=== PATIENT | male | born 1940 | race Caucasian/White ===

== ENCOUNTER 2016-08-28 18:28 | Inpatient (IN) | payer OTHER, MEDICARE ==
[~2016-08-28] VITALS: Ht 177.8 cm; Wt 41.4 kg
--- NOTE | ~2016-08-28 | PR ---
[place], [place] PROGRESS NOTE NAME: AMGAN XIONG UNIT #: [id number] ROOM: 426 DOCTOR: CAESAR QUIGLEY MD,DARLENE BIRTHDATE: [birth year] DOS: 08/31/2016 SUBJECTIVE: He has been kept n.p.o. past midnight for bronchoscopy planned for today. He was still noted significant amount of cough without any sputum expectoration. Denies symptoms of chest pain. Continue previous ordered medication for exacerbation of COPD and acute pneumonia. OBJECTIVE: VITAL SIGNS: Showed normal temperature, respiratory rate 18, heart rate 104, blood pressure of 131/68. Pulse oxygen saturation was noted as 98% on 3 liters nasal cannula. HEENT: Examination shows head was atraumatic. Eyes nonicterus. NECK: Supple. CARDIOVASCULAR: S1, S2 audible. LUNGS: Noted without any wheezing. No crackles. ABDOMEN: Soft, nontender. LABORATORY DATA: CBC this morning, hemoglobin 11.9, hematocrit 38.8, WBC count and platelet count were normal. D-dimers were noted as 0.57 that was ordered yesterday by the primary care attending. Platelet function assay was normal. PT/PTT were noted normal yesterday. IMPRESSION: The patient with bronchiectasis as well as impaction of the mucous plug with mucosa and suspected acute pneumonia exacerbation, chronic obstructive pulmonary disease and other problems which has been already treated. The patient is n.p.o. past midnight for bronchoscopy. PLAN OF TREATMENT: Proceed with bronchoscopy as planned. Any changes or modifications of treatment if necessary will be done after the bronchoscopy. DARLENE MAYNARD MD CM:PNTRANS [id number] DARLENE QUIGLEY MD 08/31/16 1308 interface
--- NOTE | ~2016-08-28 | CON ---
[place], [place] REPORT OF CONSULTATION NAME: MAGAN XIONG UNIT #: [id number] ROOM: 426 DOCTOR: DARLENE JACOME MD BIRTHDATE: [birth year] DOS: 08/29/2016 Consultation at the request of the hospitalist services. REASON FOR CONSULTATION: Assess the patient for acute exacerbation of COPD and possibility of acute pneumonia. HISTORY OF PRESENT ILLNESS: This is a 75-year-old white male who has been managed in the [place] system. The patient noted with history of chronic hypoxic respiratory failure with ____ advanced COPD. The patient had emphysema. The patient came to the hospital, has been noted with symptoms of increased shortness of breath, which was associated with significant cough and a small amount of clear sputum expectoration. The coughing has been noted to worsen with significant shortness of breath. The patient stated that he has been noted ill for a long time and noted with current worsening of the respiratory status and symptom. He denies any symptoms of chest pain. Denies symptoms of abdominal pain. The patient has been noted with acute exacerbation of chronic obstructive pulmonary disease and also acute tracheobronchitis. The patient's oxygen saturation noted as quite low for the patient upon arrival in the Emergency Room. REVIEW OF SYSTEMS: CONSTITUTIONAL SYMPTOMS: Fatigue and tiredness noted without symptoms of fever or chills. EYES: Denies burning, redness, or tenderness. EARS, NOSE, THROAT SYMPTOMS: No sore throat, hoarseness, otalgia, postnasal drainage or epistaxis. GASTROINTESTINAL SYMPTOMS: Denies dysphagia, nausea, vomiting, diarrhea, abdominal pain, hematemesis, melena, or hematochezia. SKIN: Denies lesions or rashes. CENTRAL NERVOUS SYSTEM: Loss of muscle mass, which has been noted chronic. There were no acute joint pain, redness or tenderness. Denies dizziness, headache, diplopia or syncopal episodes. GENITOURINARY SYMPTOMS: Denies dysuria, suprapubic pain, or hematuria. Remaining systems were reviewed with the patient, they were noted all negative. PAST MEDICAL HISTORY: Noted with; 1. History of centrilobular emphysema. 2. Chronic hypoxic respiratory failure, use of oxygen 3 liters nasal cannula. 3. History of epilepsy. 4. History of prostate cancer. The patient with history of prostate cancer, which has been treated with the radiation. 5. History of steatohepatitis. PAST SURGICAL HISTORY: 1. Cataract extraction with lens implantation. 2. Biopsy of the prostate. SOCIAL HISTORY: The patient lives at home. He has been noted with history of [place], [place] REPORT OF CONSULTATION NAME: MAGAN XIONG UNIT #: [id number] ROOM: 426 DOCTOR: CAESAR QUIGLEY MD,DARLENE BIRTHDATE: [birth year] tobacco use, started at a younger age, 2 pack of cigarettes per day until August of 2006. Denies history of alcohol use or illicit drug use. He has worked in the ____ years of total of 20 years. Denies history of alcohol use at this time. Denies history of illicit drug use. HOME MEDICATIONS: Noted as; 1. Mysoline 200 mg p.o. daily. 2. ProAir HFA inhaler p.r.n. use. 3. Spiriva Respimat 2 inhalation daily. DRUG ALLERGY HISTORY: The patient noted as no known drug allergies. PHYSICAL EXAMINATION: GENERAL: A 75-year-old male who has been noted with chronic cachexia for this patient currently comfortably lying in the bed, without any distress. VITAL SIGNS: Height for the patient noted 5 feet 10 inches, weight of 91 pounds, BMI only 13. Vital signs of the patient which have been recorded showed normal temperature, respiratory rate patient was noted 20-18, heart rate of 108-123 with sinus tachycardia, blood pressure 134/81, the patient 104/66. Pulse oxygen saturation of the patient 3 liters nasal cannula 97% saturation recorded. Previous noted oxygen saturation 70% at home for this patient. HEENT: Examination shows head was atraumatic. Eyes nonicterus. Loss of muscle mastication. NECK: Supple. CARDIOVASCULAR SYSTEM: S1, S2 is audible. LUNGS: The patient was noted without any crackles. Decreased breath sounds noted. Diffuse expiratory wheezing. ABDOMEN: Flat, soft, nontender. Bowel sounds present. CENTRAL NERVOUS SYSTEM: The patient loss of muscle mass. Cranial nerves 2-12 intact. No focal deficits. MUSCULOSKELETAL SYSTEM: No deformities. SKIN: No lesions or rashes. LABORATORY DATA: Lactic acid noted yesterday; the patient on admission 1.7. CBC yesterday on admission, WBC count 12.3, hemoglobin 39.7. Platelet count was normal. CMP of the patient, which was noted as glucose 118, BUN and creatinine was normal. The potassium was 5.2. Troponin; the patient yesterday and this morning 3 sets were normal. CBC this morning, mild anemia, otherwise normal. CBC and CMP of the patient noted normal, BUN and creatinine of the patient and other electrolytes also noted as normal. The chest x-ray only 1 view which was done in the emergency noted with increased interstitial markings noted with changes severe emphysema. The patient with COPD, hyperinflation. Small granuloma was suspected in the left upper lobe as well. Some pleural thickening was identified in the right apex. Acute infiltration, especially in the left lower lobe cannot be completely excluded. The patient with my personal review of the chest x-ray. IMPRESSION: 1. The patient who has been currently admitted to the hospital noted with acute on chronic severe hypoxic respiratory failure with advanced muscle wasting for [place], [place] REPORT OF CONSULTATION NAME: MAGAN XIONG UNIT #: [id number] ROOM: 426 DOCTOR: KAN JACOME MDM BIRTHDATE: [birth year] the patient secondary to cachexia underlying chronic obstructive pulmonary disease would be considered. [facility] the possibility of tuberculosis, which has been excluded by the testing as reported in the history. 2. History of prostate cancer, which has been treated with radiation therapy. 3. Past history of nicotine abuse as well. 4. Possibly interstitial lung disease; the patient cannot be completely excluded. PLAN OF TREATMENT: The patient has been receiving currently intravenous corticosteroids 60 mg q. 12h, which will be continued. Continue bronchodilators as previously. Continue current antibiotic. Obtain the sputum for Gram stain and culture as well. The patient will be ordered a CT scan of the chest the patient without contrast. The patient to assess the underlying pulmonary status including assessment for any interstitial lung disease or other abnormalities. Prealbumin level will be ordered as well. The patient for assessment of nutritional status. Optimizing nutritional status the patient as well. Usual care, other supportive plan of therapy and care. Further treatment changes will be done based on progression of the illness. The patient's overall assessment has been discussed with his son in detail in the room, any questions asked by the patient were answered to their satisfaction. Thank you for allowing me to participate in the care of this patient. DARLENE MAYNARD MD CM:CONSTR:REPORT OF CONSULTATION 1452 08/30/16 0223 interface
--- NOTE | ~2016-08-28 | PR ---
[place], [place] PROGRESS NOTE NAME: MAGAN XIONG UNIT #: [id number] ROOM: 426 DOCTOR: CAESAR QUIGLEY MD,DARLENE BIRTHDATE: [birth year] DOS: 08/30/2016 SUBJECTIVE: The patient has been noted to be comfortable at this time without any distress. Denies symptoms of chest pain. Shortness of breath of the patient has been improving. The cough has been noted to be decreased. Denies symptoms of abdominal pain. OBJECTIVE: VITAL SIGNS: For the patient, which has been recorded showed temperature noted as normal, respiratory rate 16, heart rate 120-93, blood pressure 140/88-95/55. Pulse oxygen saturation of the patient on 3 liters canula 98% saturation. HEENT: Shows no acute change. NECK: Supple. CARDIOVASCULAR: S1, S2 audible. LUNGS: Shows moderate decreased breath sounds, scattered crackles of the lungs. Scattered wheezing. ABDOMEN: Soft, nontender. Bowel sounds are present. EXTREMITIES: Shows no edema, clubbing or cyanosis. LABORATORY DATA: CT scan of the chest with findings shows significant bronchiectasis noted in the lower lungs, worse on the right than the left side. Impaction of the of the mucus plug was noted with nodular density. The right lower lobe for this patient could be mucocele, possibility of a nodule for the patient can be excluded. Similar finding was noted in the left lower lobe as well. The right upper lobe, finding was also noted with possibility of fibrosis, which probably appeared to be chronic at this time with some pleural based thickening at this time as well. Prealbumin level noted as 11. IMPRESSION: 1. The patient with acute hypoxic respiratory failure, chronic hypoxic respiratory failure. 2. Acute pneumonia would be considered bilaterally, most likely related to the aspiration would be likely. 3. Impaction of the mucus for this patient was also considered in the left lower lobe bronchial opening. 4. Possibility of scarring in the right upper lobe for this patient maybe chronic, but there were no previous studies of the patient available, the records from the [facility] for the patient to document that. Until the comparison made for this patient, this could be considered as may be a chronic finding with some acute component cannot be excluded. 5. Protein-calorie malnutrition status was also noted. PLAN OF TREATMENT: Fibrobronchoscopy for the patient to be done tomorrow. Continue oxygen supplementation, bronchodilators and the treatment plan of management. Usual care. All other supportive therapy, plan of management. These findings, especially in the lower lungs needs to clear up and monitored later on an outpatient to document complete resolution. If it remains persistent, certainly additional abnormalities could be considered for patient such as malignancy as well. Improve the nutritional status. [place], [place] PROGRESS NOTE NAME: MAGAN XIONG UNIT #: [id number] ROOM: 426 DOCTOR: DARLENE JACOME MD BIRTHDATE: [birth year] DARLENE MAYNARD MD CM:FILI [id number] DARLENE QUIGLEY MD 08/30/16 2245 interface
--- NOTE | ~2016-08-28 | PROC NOTE ---
[place], [place] PROCEDURE NOTE NAME: MAGAN XIONG UNIT #: [id number] ROOM: 426 DOCTOR: CAESAR QUIGLEY MD,DARLENE BIRTHDATE: [birth year] DOS: 08/31/2016 PREOPERATIVE DIAGNOSES: The patient with abnormal finding CT scan of the chest with mucus cleared from the patient as well as endobronchial obstruction with mucus plugs. POSTOPERATIVE DIAGNOSES: The patient with abnormal finding CT scan of the chest with mucus cleared from the patient as well as endobronchial obstruction with mucus plugs. PROCEDURE DESCRIPTION: Informed consent obtained from the patient. He was brought to the OR and placed in supine position. Conscious sedation administered by the Anesthesia Department. After achieving appropriate sedation, airway introduced into the mouth. Bronchoscope advanced into the airway into laryngeal area. The epiglottis and vocal cords were seen. Bronchoscope advanced to the vocal cord and tracheal lumen. Tracheal lumen was noted with only small amount of secretion, which was suctioned out. The agustina was noted sharp. Right upper, right middle, right lower lobe openings were examined. Left upper, lingular lower lobe openings were all examined as well. The patient noted with moderate amount of thick mucoid secretion with some purulent secretion in the lower lobe endobronchial tree essentially bilaterally, which was cleared up with normal saline wash. Procedure was tolerated by the patient. No endobronchial obstructive lesions were noted. ADDENDUM PROCEDURE DESCRIPTION: All the endobronchial tree secretion was suctioned out and sent for culture. Procedure was well tolerated without any complications. Postoperative findings will be discussed with the patient once the patient recovers the effects of acute sedation. DARLENE MAYNARD MD CM:PROCNOTE:PROCEDURE NOTE [id number] DARLENE QUIGLEY MD
--- NOTE | ~2016-08-28 | PR ---
[place], [place] PROGRESS NOTE NAME: MAGAN XIONG UNIT #: [id number] ROOM: 426 DOCTOR: DARLENE JACOME MD BIRTHDATE: [birth year] DOS: 09/01/2016 SUBJECTIVE: He has been doing very well at this time with continued reduction and improvement in respiratory symptoms. Bronchoscopy completed yesterday without any difficulty. The patient has not been noted symptoms of chest pain or any abdominal pain. OBJECTIVE: VITAL SIGNS: For the patient which has been recorded shows normal temperature, respiratory rate 18, heart rate of 96, blood pressure of 98/60-100/84. The pulse oxygen saturation of the patient noted on 3 liters nasal canula 95% saturation. HEENT: Showed no acute change. NECK: Supple. CARDIOVASCULAR: S1, S2 audible. LUNGS: Noted without any wheezing or crackles at the present time. Breaths are noted mildly decreased bilaterally. ABDOMEN: Soft, nontender. LABORATORY DATA: Gram stain and bronchial washings, many white blood cells with moderate epithelial cells with gram-positive cocci in pairs. The preliminary culture noted normal omar. IMPRESSION: 1. The patient with significant improvement has been noted after the bronchoscopy with reduction and improvement in the respiratory complaints. 2. The patient with mucus impaction with mucosa as well as acute pneumonia, rule out any. 3. Pulmonary nodules in the lungs. PLAN OF TREATMENT: The patient could be discharged home on oral antibiotics and tapering dose of prednisone. He was advised to be followed up and to be assessed as an outpatient, followup CT scan of the chest in about a month to document resolution of current pulmonary abnormality. ____ abnormality remains persistent, certainly he will be assessed additionally for possibility of malignancy as well. [place], [place] PROGRESS NOTE NAME: MAGAN XIONG UNIT #: [id number] ROOM: 426 DOCTOR: DARLENE JACOME MD BIRTHDATE: [birth year] DARLENE MAYNARD MD CM:PNTRANS [id number] DARLENE QUIGLEY MD 09/01/16 1200 interface
[~2016-08-28 18:28] MED LIST: ADVAIR 250/501 EA INH; CIPROFLOXACIN500 MG PO; MYSOLINE50 M2 PO; SPIRIVA18 MCG PO
[2016-08-28 18:37] VITALS: BP 152/94
[2016-08-28] MEDS ORDERED: PROAIR HFA8.5 GM INH (18:41)
[2016-08-28 19:13] LABS: BASO # 0.1 10*3/uL (0.0-0.1); BASO % 0.6 % (0.0-1.0); EOS # 0.3 10*3/uL (0.0-0.4); EOS % 2.5 % (1.0-4.0); HEMATOCRIT 39.7 % (42.0-52.0); HEMOGLOBIN 12.3 g/dl (14.0-18.0); LYMPH # 1.1 10*3/uL (1.3-4.4); LYMPH % 10.5 % (27.0-41.0); MEAN CELL VOLUME 89.8 fl (80.0-94.0); MEAN CORPUSCULAR HGB 27.8 pg (27.0-31.0); MEAN PLATELET VOLUME 9.6 fl (9.6-12.3); MONO # 0.8 10*3/uL (0.1-1.0); MONO % 7.2 % (3.0-9.0); NEUT # 8.4 10*3/uL (2.3-7.9); NEUT % 78.8 % (47.0-73.0); PLATELET COUNT AUTOMATED 281 10*3/uL (130-400); RED BLOOD COUNT 4.42 10*6/uL (4.50-5.90); RED CELL DISTRI WIDTH 15.9 % (0-14.5); WHITE BLOOD COUNT 10.6 10*3/uL (4.8-10.8)
[2016-08-28 19:22] LABS: PROTHROMBIN TIME 10.3 SECONDS (9.0-12.4)
[2016-08-28 19:30] LABS: ALBUMIN 2.9 gm/dl (3.1-4.5); ALKALINE PHOSPHATASE 147 U/L (45-117); BILIRUBIN, TOTAL 0.2 mg/dl (0.2-1.0); BUN 14 mg/dl (7-24); CARBON DIOXIDE 34 mmol/L (21-32); CHLORIDE 102 mmol/L (98-107); CPK 46 U/L (39-308); EST GLOM FILT AFRICAN AMERICAN > 60 ml/min; GLUCOSE 118 mg/dL (65-99); LDH 170 U/L (87-241); MAGNESIUM 2.1 mg/dL (1.5-2.1); POTASSIUM 5.2 mmol/L (3.5-5.1); SGOT/AST 30 IU/L (3-35); SGPT/ALT 14 U/L (12-78); SODIUM 145 mmol/L (136-145); TOTAL PROTEIN 7.7 gm/dL (6.4-8.2)
[2016-08-28 19:31] LABS: TROPONIN I < 0.015 ng/ml (<0.045)
[2016-08-28 20:06] VITALS: BP 134/81
[2016-08-28 22:28] VITALS: BP 99/58
[2016-08-28 22:30] VITALS: BP 99/58
[2016-08-29 03:26] LABS: BILIRUBIN NEGATIVE (NEGATIVE); BLOOD NEGATIVE (NEGATIVE); CLARITY CLEAR (CLEAR); COLOR YELLOW (YELLOW); GLUCOSE NEGATIVE (NEGATIVE); KETONE 1+ (NEGATIVE); LEUKO ESTERASE NEGATIVE (NEGATIVE); NITRITE NEGATIVE (NEGATIVE); PROTEIN TRACE (NEGATIVE); SPECIFIC GRAVITY 1.025 (1.005-1.030)
[2016-08-29 03:29] LABS: HEMATOCRIT 38.1 % (42.0-52.0); HEMOGLOBIN 11.4 g/dl (14.0-18.0); MEAN CELL VOLUME 90.9 fl (80.0-94.0); MEAN CORPUSCULAR HGB 27.2 pg (27.0-31.0); MEAN CORPUSCULAR HGB CONC 29.9 g/dl (33.0-37.0); PLATELET COUNT AUTOMATED 259 10*3/uL (130-400); RED BLOOD COUNT 4.19 10*6/uL (4.50-5.90); RED CELL DISTRI WIDTH 15.9 % (0-14.5); WHITE BLOOD COUNT 9.3 10*3/uL (4.8-10.8)
[2016-08-29 03:32] LABS: BACTERIA TRACE; EPITHELIAL CELLS 0-2; URINE REFLEX COMMENT NO (NO)
[2016-08-29 03:45] LABS: HEMOGLOBIN A1c 5.2 % (4.8-5.6)
[2016-08-29 03:46] LABS: ALBUMIN 2.5 gm/dl (3.1-4.5); ALKALINE PHOSPHATASE 133 U/L (45-117); BILIRUBIN, TOTAL 0.3 mg/dl (0.2-1.0); BUN 14 mg/dl (7-24); CARBON DIOXIDE 26 mmol/L (21-32); CHLORIDE 103 mmol/L (98-107); CHOLESTEROL 198 mg/dL (<200); EST GLOM FILT AFRICAN AMERICAN > 60 ml/min; GLUCOSE 108 mg/dL (65-99); MAGNESIUM 1.7 mg/dL (1.5-2.1); PHOSPHOROUS 2.8 mg/dL (2.5-4.9); POTASSIUM 4.5 mmol/L (3.5-5.1); SGOT/AST 26 IU/L (3-35); SGPT/ALT 14 U/L (12-78); SODIUM 142 mmol/L (136-145); TOTAL PROTEIN 7.1 gm/dL (6.4-8.2); TRIGLYCERIDES 79 mg/dl (<150); VLDL CHOLESTEROL 16 mg/dL (6-40)
[2016-08-29 03:47] LABS: HDL CHOLESTEROL 71 mg/dl (40-60); LDL CHOLESTEROL 111 mg/dL (9-159)
[2016-08-29 03:49] LABS: BASOPHIL # 0.1 10*3/uL (0-0.1); BASOPHILS 1 % (0-1); LYMPHOCYTE # 0.7 10*3/uL (1.3-4.4); NEUTROPHIL # 8.5 10*3/uL (2.3-7.9); NEUTROPHILS 91 % (47-73); PLATELET SUFFICIENCY NORMAL (NORMAL); TOTAL CELLS COUNTED 100 #CELLS
[2016-08-29 06:50] LABS: FOLIC ACID 11.02 ng/mL (>5.38)
[2016-08-29 08:00] VITALS: BP 104/66
[2016-08-29 12:00] VITALS: BP 106/72
[2016-08-29 16:00] VITALS: BP 133/68
[2016-08-29 20:00] VITALS: BP 99/59
[2016-08-30] VITALS: BP 95/55
[2016-08-30 08:00] VITALS: BP 140/88
[2016-08-30 11:54] LABS: PROTHROMBIN TIME 10.8 SECONDS (9.0-12.4)
[2016-08-30 11:59] LABS: COL/EPI 63 SECONDS (86-157)
[2016-08-30 12:00] VITALS: BP 110/64
[2016-08-30 16:00] VITALS: BP 103/61
[2016-08-30 20:00] VITALS: BP 101/60
[2016-08-31] VITALS (10 sets, daily range): BP systolic 89–131; BP diastolic 48–68
[2016-08-31 06:17] LABS: HEMATOCRIT 38.8 % (42.0-52.0); HEMOGLOBIN 11.9 g/dl (14.0-18.0); MEAN CELL VOLUME 88.6 fl (80.0-94.0); MEAN CORPUSCULAR HGB 27.2 pg (27.0-31.0); MEAN CORPUSCULAR HGB CONC 30.7 g/dl (33.0-37.0); MEAN PLATELET VOLUME 10.8 fl (9.6-12.3); PLATELET COUNT AUTOMATED 276 10*3/uL (130-400); RED BLOOD COUNT 4.38 10*6/uL (4.50-5.90); RED CELL DISTRI WIDTH 16.2 % (0-14.5); WHITE BLOOD COUNT 9.8 10*3/uL (4.8-10.8)
[2016-08-31 06:57] LABS: LYMPHOCYTE # 1.1 10*3/uL (1.3-4.4); MONOCYTE # 1.2 10*3/uL (0.1-1.0); NEUTROPHIL # 7.5 10*3/uL (2.3-7.9); NEUTROPHILS 77 % (47-73); TOTAL CELLS COUNTED 100 #CELLS
[2016-08-31 06:58] LABS: PLATELET SUFFICIENCY NORMAL (NORMAL)
[2016-08-31] MEDS ORDERED: LEVAQUIN500 M2 PO (11:45)
[2016-08-31] MEDS ORDERED: PREDNISONE50 MG PO (11:45)
[2016-08-31] MEDS ORDERED: MEGACE40 MG PO (11:46)
[2016-09-01] VITALS: BP 100/84
[2016-09-01 05:57] LABS: BASO % 0.4 % (0.0-1.0); EOS % 0.2 % (1.0-4.0); HEMOGLOBIN 10.1 g/dl (14.0-18.0); LYMPH # 1.2 10*3/uL (1.3-4.4); LYMPH % 20.7 % (27.0-41.0); MEAN CELL VOLUME 89.8 fl (80.0-94.0); MEAN CORPUSCULAR HGB 27.8 pg (27.0-31.0); MEAN PLATELET VOLUME 10.4 fl (9.6-12.3); MONO # 0.5 10*3/uL (0.1-1.0); MONO % 8.6 % (3.0-9.0); NEUT % 69.7 % (47.0-73.0); PLATELET COUNT AUTOMATED 247 10*3/uL (130-400); RED BLOOD COUNT 3.63 10*6/uL (4.50-5.90); RED CELL DISTRI WIDTH 16.4 % (0-14.5); WHITE BLOOD COUNT 5.7 10*3/uL (4.8-10.8)
[2016-09-01 06:01] LABS: EST GLOM FILT AFRICAN AMERICAN > 60 ml/min
[2016-09-01 06:03] LABS: HEMATOCRIT 32.6 % (42.0-52.0)
[2016-09-01 08:00] VITALS: BP 105/52; BP 90/60
[2016-09-01 12:00] VITALS: BP 94/52
[2016-09-01 14:09] LABS: ACID FAST SPEC PROCESSING Concentration (.)
[2016-09-01 16:00] VITALS: BP 95/56
== END 2016-09-01 16:26 | disposition home or self-care (01) | DRG 177 ==
LOC: ED 18:28 → 4E 20:56 → EDHOLD 20:56 → 4E 21:15
PROVIDERS: Family Medicine; Hospitalist; Internal Medicine; Internal Medicine Critical Care Medicine; Physician Assistant
PROC: 0BC78ZZ Extirpation of Matter from Left Main Bronchus, Via Natural or Artificial Opening Endoscopic (ICD-10-PCS; principal; 2016-08-31)
PROC: 0BC48ZZ Extirpation of Matter from Right Upper Lobe Bronchus, Via Natural or Artificial Opening Endoscopic (ICD-10-PCS; principal; 2016-08-31)
PROC: 0BC18ZZ Extirpation of Matter from Trachea, Via Natural or Artificial Opening Endoscopic (ICD-10-PCS; principal; 2016-08-31)
PROC: 0BCB8ZZ Extirpation of Matter from Left Lower Lobe Bronchus, Via Natural or Artificial Opening Endoscopic (ICD-10-PCS; principal; 2016-08-31)
PROC: 0BC58ZZ Extirpation of Matter from Right Middle Lobe Bronchus, Via Natural or Artificial Opening Endoscopic (ICD-10-PCS; principal; 2016-08-31)
PROC: 0BC98ZZ Extirpation of Matter from Lingula Bronchus, Via Natural or Artificial Opening Endoscopic (ICD-10-PCS; principal; 2016-08-31)
PROC: 0BC88ZZ Extirpation of Matter from Left Upper Lobe Bronchus, Via Natural or Artificial Opening Endoscopic (ICD-10-PCS; principal; 2016-08-31)
PROC: 0BC38ZZ Extirpation of Matter from Right Main Bronchus, Via Natural or Artificial Opening Endoscopic (ICD-10-PCS; principal; 2016-08-31)
PROC: 0BC68ZZ Extirpation of Matter from Right Lower Lobe Bronchus, Via Natural or Artificial Opening Endoscopic (ICD-10-PCS; principal; 2016-08-31)
DX: J15.6 Pneumonia due to other Gram-negative bacteria (principal); J96.21 Acute and chronic respiratory failure with hypoxia; E44.0 Moderate protein-calorie malnutrition; J44.0 Chronic obstructive pulmonary disease with (acute) lower respiratory infection; J44.1 Chronic obstructive pulmonary disease with (acute) exacerbation; D64.9 Anemia, unspecified; Z99.81 Dependence on supplemental oxygen; G40.909 Epilepsy, unspecified, not intractable, without status epilepticus; R74.8 Abnormal levels of other serum enzymes; Z85.46 Personal history of malignant neoplasm of prostate; Z82.3 Family history of stroke; Z84.89 Family history of other specified conditions; Z79.52 Long term (current) use of systemic steroids; R91.8 Other nonspecific abnormal finding of lung field

== ENCOUNTER 2016-11-02 16:34 | Inpatient (IN) | payer OTHER ==
[~2016-11-02] VITALS: Ht 177.8 cm; Wt 37.2 kg
--- NOTE | ~2016-11-02 | CON ---
[place], [place] REPORT OF CONSULTATION NAME: MAGAN XIONG UNIT #: [id number] ROOM: [facility] DOCTOR: MANN POPE MD BIRTHDATE: [birth year] DOS: 11/04/2016 PSYCHIATRIC CONSULT CHIEF COMPLAINT: "I will not do nothing to hurt myself. I could not do that to my kids." HISTORY OF PRESENT ILLNESS: This is a 76-year-old white male who was admitted to ICU. The patient was brought in after an attempted suicide. The patient had a loaded gun that did not fire. He reports that he is frustrated by life and his declining health. He does admit to depression. He notes poor appetite with a significant weight loss. He also notices decreased sleep with difficulty falling asleep, sleep continuity disturbance, procurement services manager awakening, anergia, anhedonia, hopeless, helpless feelings. He convincingly denied suicidal thoughts, stating that while he had those in the past, he realizes now that his children would be devastated if he carried out such an act and would never want to hurt them. He is willing to consider trying some medication to see if it would help him sleep and improve his appetite. PAST MEDICAL HISTORY: Remarkable for significant COPD, prostate cancer, and seizure disorder. MENTAL STATUS: The patient is alert and oriented to person, place, and time. Mood is depressed. Affect is flat and blunted with constricted range. He does engage readily in conversation. There is no hypomania or asael. There are no overt auditory or visual hallucinations, delusions or paranoia. Memory is intact. DIAGNOSIS: Major depression, recurrent, severe. PLAN: I will discontinue Restoril, try to avoid benzos at all if at all possible given his severe COPD. We will start him on Remeron 15 mg at bedtime as an antidepressant that will aid sleep and improve appetite. I will also give him zinc 220 mg in the morning to improve his sense of taste to see if this will make him desire food more. At this point, I do not see a need to admit to the [facility], although he would benefit from followup at a Mental [facility] Center. MANN POPE MD CM:CONSTR:REPORT OF CONSULTATION 1 11/04/16 0948 interface
--- NOTE | ~2016-11-02 | CON ---
[place], [place] REPORT OF CONSULTATION [id number] UNIT #: [id number] ROOM: [facility] DOCTOR: MAGAN CHOUDHURY ED.D (BETI) BIRTHDATE: [birth year] DOS: 11/03/2016 HISTORY OF PRESENT ILLNESS: The patient is a 76-year-old male referred by Dr. Hall for evaluation after suicide attempt. At the present time, this patient is in the intensive care unit at [facility]. His was 24 years ago and he has 4 children, 3 of whom live in the area. He formerly worked at [employer] in the area. He does follow at the [facility] in [place], [place] for his medical care. He served in the [employer]. His medical history is pertinent for COPD, prostate cancer, epilepsy. He denies any substance abuse issues and states he quit smoking quite some time ago. He states he does have help from his one son who does live with the patient. His medications include albuterol, Mysoline, Zofran, Restoril, Lovenox, omeprazole and Solu-Medrol. At the present time, he states he will not do anything to hurt himself. He attempted to shoot himself, but the gun did not go off. His son then took the gun and got him to the hospital for an evaluation. He is to be evaluated by our psychiatrist, Dr. Estrada tomorrow. He states that he is not actually depressed, but his medical condition is so bad because of his COPD that he has no quality of life any longer and would just as soon . He may be a candidate for the Behavioral Health Unit, but his medical condition is so compromised at this time that will be determined once he is medically stable. He might benefit from an antidepressant, but the patient states he is not really need any medicine for his depression. DIAGNOSIS: Major depressive disorder, recurrent. RECOMMENDATIONS: 1. The patient should be considered for Senior Behavioral Health, although he may not be suicidal by the time he is medically stable. 2. The patient should continue following at the [facility]. Thank you very much for this consult. MAGAN CHOUDHURY ED.D CM:CONSTR:REPORT OF CONSULTATION 1107 11/03/16 1158 interface
[~2016-11-02 16:34] MED LIST changes: +LEVAQUIN500 M2 PO; +MEGACE40 MG PO; +PREDNISONE50 MG PO; +PROAIR HFA8.5 GM INH
[2016-11-02 16:53] VITALS: BP 119/69
[2016-11-02 17:23] LABS: BASO % 0.3 % (0.0-1.0); HEMATOCRIT 44.3 % (42.0-52.0); HEMOGLOBIN 13.4 g/dl (14.0-18.0); LYMPH # 0.8 10*3/uL (1.3-4.4); MEAN CELL VOLUME 92.7 fl (80.0-94.0); MEAN CORPUSCULAR HGB CONC 30.2 g/dl (33.0-37.0); MONO # 1.3 10*3/uL (0.1-1.0); MONO % 8.6 % (3.0-9.0); NEUT % 85.4 % (47.0-73.0); PLATELET COUNT AUTOMATED 395 10*3/uL (130-400); RED BLOOD COUNT 4.78 10*6/uL (4.50-5.90); RED CELL DISTRI WIDTH 17.2 % (0-14.5); WHITE BLOOD COUNT 15.2 10*3/uL (4.8-10.8)
[2016-11-02 17:40] LABS: ALBUMIN 3.1 gm/dl (3.1-4.5); ALKALINE PHOSPHATASE 166 U/L (45-117); BUN 19 mg/dl (7-24); CHLORIDE 102 mmol/L (98-107); CREATININE 1.17 mg/dL (0.70-1.30); MAGNESIUM 2.3 mg/dL (1.5-2.1); POTASSIUM 5.6 mmol/L (3.5-5.1); SGOT/AST 25 IU/L (3-35); SGPT/ALT 13 U/L (12-78); SODIUM 143 mmol/L (136-145); TOTAL PROTEIN 8.3 gm/dL (6.4-8.2)
[2016-11-02 17:41] LABS: ACETAMINOPHEN (TYLENOL) < 2.0 ug/ml (10-30); ETHYL ALCOHOL < 3.0 mg/dl (<3); TROPONIN I < 0.015 ng/ml (<0.045)
[2016-11-02 23:00] VITALS: BP 121/71
[2016-11-03] VITALS: BP 116/67
[2016-11-03 04:00] VITALS: BP 121/61
[2016-11-03 05:57] LABS: HEMATOCRIT 39.6 % (42.0-52.0); HEMOGLOBIN 11.8 g/dl (14.0-18.0); MEAN CELL VOLUME 95.2 fl (80.0-94.0); MEAN CORPUSCULAR HGB 28.4 pg (27.0-31.0); MEAN CORPUSCULAR HGB CONC 29.8 g/dl (33.0-37.0); MEAN PLATELET VOLUME 10.3 fl (9.6-12.3); PLATELET COUNT AUTOMATED 317 10*3/uL (130-400); RED BLOOD COUNT 4.16 10*6/uL (4.50-5.90); RED CELL DISTRI WIDTH 17.3 % (0-14.5); WHITE BLOOD COUNT 12.3 10*3/uL (4.8-10.8)
[2016-11-03 06:15] LABS: BUN 18 mg/dl (7-24); CHLORIDE 108 mmol/L (98-107); PHOSPHOROUS 3.2 mg/dL (2.5-4.9); SODIUM 143 mmol/L (136-145)
[2016-11-03 06:17] LABS: POTASSIUM 4.6 mmol/L (3.5-5.1)
[2016-11-03 06:22] LABS: BILIRUBIN 2+ (NEGATIVE); BLOOD 3+ (NEGATIVE); CLARITY CLEAR (CLEAR); COLOR YELLOW (YELLOW); GLUCOSE NEGATIVE (NEGATIVE); KETONE 3+ (NEGATIVE); LEUKO ESTERASE TRACE (NEGATIVE); NITRITE NEGATIVE (NEGATIVE); SPECIFIC GRAVITY >= 1.030 (1.005-1.030)
[2016-11-03 06:27] LABS: URINE AMPHETAMINES < 1000 (1000ng/ml); URINE BARBITURATES > 200 (200ng/ml); URINE BENZODIAZEPINES < 200 (200ng/ml); URINE CANNABINOIDS (THC) < 50 (50ng/ml); URINE COCAINE < 300 (300ng/ml); URINE METHADONE < 300 (300ng/ml); URINE OPIATES > 300 (300ng/ml)
[2016-11-03 06:29] LABS: BACTERIA TRACE; RBC 31-40 rbc/hpf (0-2); WBC 21-30 wbc/hpf (0-5)
[2016-11-03 06:30] LABS: URINE PHENCYCLIDINE < 25 (25ng/ml)
[2016-11-03 06:39] LABS: PLATELET SUFFICIENCY NORMAL (NORMAL); TOTAL CELLS COUNTED 100 #CELLS
[2016-11-03 08:00] VITALS: BP 115/68
[2016-11-03 12:00] VITALS: BP 112/60
[2016-11-03 16:00] VITALS: BP 112/69
[2016-11-03 20:00] VITALS: BP 106/63
[2016-11-04] VITALS (8 sets, daily range): BP systolic 97–124; BP diastolic 57–70
[2016-11-04 06:07] LABS: BASO % 0.1 % (0.0-1.0); HEMATOCRIT 38.8 % (42.0-52.0); HEMOGLOBIN 11.7 g/dl (14.0-18.0); LYMPH # 0.9 10*3/uL (1.3-4.4); LYMPH % 7.3 % (27.0-41.0); MEAN CELL VOLUME 94.9 fl (80.0-94.0); MEAN CORPUSCULAR HGB 28.6 pg (27.0-31.0); MEAN CORPUSCULAR HGB CONC 30.2 g/dl (33.0-37.0); MEAN PLATELET VOLUME 10.7 fl (9.6-12.3); MONO # 1.3 10*3/uL (0.1-1.0); MONO % 10.5 % (3.0-9.0); NEUT # 10.3 10*3/uL (2.3-7.9); NEUT % 81.6 % (47.0-73.0); PLATELET COUNT AUTOMATED 325 10*3/uL (130-400); RED BLOOD COUNT 4.09 10*6/uL (4.50-5.90); RED CELL DISTRI WIDTH 17.6 % (0-14.5); WHITE BLOOD COUNT 12.6 10*3/uL (4.8-10.8)
[2016-11-04 06:11] LABS: BUN 16 mg/dl (7-24); CHLORIDE 109 mmol/L (98-107); SODIUM 145 mmol/L (136-145)
[2016-11-05] VITALS: BP 97/58
[2016-11-05 04:00] VITALS: BP 81/43
[2016-11-05 08:00] VITALS: BP 63/41
[2016-11-05 12:00] VITALS: BP 95/52
[2016-11-05 16:00] VITALS: BP 107/54
[2016-11-05 20:00] VITALS: BP 111/58
== END 2016-11-05 21:08 | disposition hospice, home (50) | DRG 871 ==
LOC: ED 16:34 → EDHOLD 20:49 → 5E 20:49 → ICCU 20:49 → 5E 20:56 → ICCU 21:32 → 4E 11-04 14:17
PROVIDERS: Family Medicine; Physician Assistant; ADMIT Internal Medicine
DX: A41.9 Sepsis, unspecified organism (principal); J96.20 Acute and chronic respiratory failure, unspecified whether with hypoxia or hypercapnia; E44.0 Moderate protein-calorie malnutrition; F33.2 Major depressive disorder, recurrent severe without psychotic features; J44.1 Chronic obstructive pulmonary disease with (acute) exacerbation; N39.0 Urinary tract infection, site not specified; Z68.1 Body mass index [BMI] 19.9 or less, adult; G40.909 Epilepsy, unspecified, not intractable, without status epilepticus; R62.7 Adult failure to thrive; E87.5 Hyperkalemia; E83.41 Hypermagnesemia; T14.91 Suicide attempt; Z85.46 Personal history of malignant neoplasm of prostate; Z92.3 Personal history of irradiation; Z99.81 Dependence on supplemental oxygen; X83.8XXA Intentional self-harm by other specified means, initial encounter; Y93.89 Activity, other specified; Z79.899 Other long term (current) drug therapy; Y92.89 Other specified places as the place of occurrence of the external cause; Y99.8 Other external cause status; Z87.891 Personal history of nicotine dependence; Z84.1 Family history of disorders of kidney and ureter; Z82.3 Family history of stroke

== ENCOUNTER 2016-11-05 21:25 | Inpatient (IN) | payer OTHER, MEDICARE ==
[~2016-11-05] VITALS: Ht 177.8 cm; Wt 37.2 kg
[2016-11-05 22:26] VITALS: BP 107/54
--- NOTE | 2016-11-05 22:26 | NUR ---
PT. TRANSFERRED TO CARE OF HOSPICE. A 76, admitted to , under the services of MAGNOLIA Weiss DO with a diagnosis of END STAGE COPD. Chief complaint is SHORTNESS OF BREATH. Patient arrived via NONAPPLICABLE from [place]. Monitor applied. Initial assessment completed. Vital signs taken and recorded. MAGNOLIA WEISS DO notified of admission to the unit. Orders received. See assessment for past medical history, medications and allergies. Patient and/or family oriented to unit. [facility]. Clothing/patient valuable form completed. IZABEL WEINBERG
--- NOTE | 2016-11-05 23:00 | NUR ---
PT. RESTING COMFORTABLY, MORPHINE EFFECTIVE.
--- NOTE | 2016-11-05 23:38 | NUR ---
MORPHINE GIVEN ORDERED, ROUTINE DOSE. IZABEL WEINBERG RN
[2016-11-06] VITALS: BP 88/52
--- NOTE | 2016-11-06 03:51 | NUR ---
PT. GIVEN MORPHINE ORDERED. REMAINS UNRESPONSIVE. FAMILY AT BEDSIDE. IZABEL WEINBERG RN
[2016-11-06 08:00] VITALS: BP 87/50
--- NOTE | 2016-11-06 08:06 | NUR ---
speech daily note No therapy this date due to patient being unresponsive. Ann Lee MA CCC-WELL SITE DRILLING ENGINEER
--- NOTE | 2016-11-06 08:11 | NUR ---
Shift chart check completed.
[2016-11-06 12:00] VITALS: BP 80/52
--- NOTE | 2016-11-06 15:15 | NUR ---
CALLED DR Burke DICKEY ABOUT AN ORDER A PREVENTIVE FOR PATIENT'S SACRUM.
[2016-11-06 16:00] VITALS: BP 83/37
[2016-11-06 20:00] VITALS: BP 50/30
--- NOTE | 2016-11-06 20:00 | NUR ---
ASSUMED CARE OF PATIENT. ASSESSMENT COMPLETE. RESTING IN BED. PERIODS OF APNEA NOTED. FAMILY AT BEDSIDE.
--- NOTE | 2016-11-06 22:41 | NUR ---
HOME MED UNABLE TO BE VERIFIED FOR DAILY MED REC D/T PT HOSPICE AND UNRESPONSIVE.
--- NOTE | 2016-11-06 23:02 | NUR ---
PT AT 2247. DR CHE AND DR VARGAS NOTIFIED AT 2248. TRAINING ENGINEER, ABIODUN NOTIFED AT 225. FAMILY AT BEDSIDE. HOSPICE AT BEDSIDE. ONE CALL NOTIFIED AT 2300, SPOKE TO SHARI, DUE TO PT WEIGHT ONE CALL IS NOT GOING TO FOLLOW AND PT CAN BE RELEASED.
--- NOTE | 2016-11-07 00:30 | NUR ---
MAGAN'S HOME NOTIFED. FAMILY LEFT AT THIS TIME.
== END 2016-11-07 00:30 | disposition expired | DRG 189 ==
LOC: 4E 21:25
PROVIDERS: ADMIT Internal Medicine
DX: J96.21 Acute and chronic respiratory failure with hypoxia (principal); E43 Unspecified severe protein-calorie malnutrition; Z68.1 Body mass index [BMI] 19.9 or less, adult; R62.7 Adult failure to thrive; J44.9 Chronic obstructive pulmonary disease, unspecified; K59.00 Constipation, unspecified; Z51.5 Encounter for palliative care